=== PATIENT | female | born 1935 | race Asian ===

== ENCOUNTER 2016-08-29 12:40 | Emergency (ER) | payer MEDICARE, BC ==
[~2016-08-29] VITALS: Ht 147.3 cm; Wt 53.1 kg
[2016-08-29] MEDS ORDERED: TDAP [DIPH/PERTUSSIS/TET] 0.5 ML VIAL IM ONE ×2 (13:07→13:30)
[2016-08-29 13:30] VITALS: BP 141/91
== END 2016-08-29 13:31 | disposition home or self-care (01) ==
LOC: ER 12:41
DX: S01.01XA Laceration without foreign body of scalp, initial encounter (principal); S09.90XA Unspecified injury of head, initial encounter; W22.09XA Striking against other stationary object, initial encounter; Y93.89 Activity, other specified; Y92.89 Other specified places as the place of occurrence of the external cause; Y99.8 Other external cause status
CPT/HCPCS: 12001; 90471; 90715; 99283; A4606; A6402; A6403; Z7610

== ENCOUNTER 2017-08-17 14:24 | Emergency (ER) | payer MEDICARE, BC ==
[~2017-08-17] VITALS: Ht 149.9 cm; Wt 49.9 kg
--- NOTE | 2017-08-17 14:30 | NUR ---
A/OX3, PT WAS ASSISTED VIA WHEELCHAIR TO ED BED 16, PT IS C/O FEELING DIZZY AND PALPITATION SINCE THIS AM, NAUSEA, DIARRHEA AND NO APETITE X 2 DAYS. NO CHEST PAIN, NO SOB. "I DON'T FEEL GOOD." NAD ASSISTED TO BED. KEPT WARM AND COMFORTABLE. PENDING ER MD EVALUATION
[2017-08-17 14:48] LABS: BASOPHILS % (AUTO) 0.7 % (0.0-2.0); EOSINOPHILS % (AUTO) 1.2 % (0.0-6.0); HEMATOCRIT 41 % (33-45); HEMOGLOBIN 14.2 g/dL (11.5-14.8); LYMPHOCYTES # (AUTO) 2.7 /CMM (0.8-4.8); LYMPHOCYTES % (AUTO) 42.5 % (20.0-44.0); MEAN CORPUSCULAR HGB CONC 34 g/dl (31.0-36.0); MEAN CORPUSCULAR VOLUME 91 fL (82-100); MONOCYTES # (AUTO) 0.4 /CMM (0.1-1.30); MONOCYTES % (AUTO) 6.2 % (2.0-12.0); NEUTROPHILS # (AUTO) 3.3 /CMM (1.8-8.9); NEUTROPHILS % (AUTO) 49.4 % (43.0-81.0); PLATELET COUNT (AUTO) 250 /CMM (150-450); RDW COEFFICIENT OF VARIATION 12.3 (11.5-15.0); RED BLOOD CELL COUNT(AUTO) 4.54 MIL/uL (4.0-5.2); WHITE BLOOD COUNT (AUTO) 6.5 K/uL (4.3-11.0)
[2017-08-17 14:58] LABS: CALCIUM, SERUM 9.2 mg/dL (8.5-10.1); CARBON DIOXIDE 26 mmol/L (21-32); CHLORIDE 106 mmol/L (98-107); CREATININE 0.8 mg/dL (0.6-1.3); GLUCOSE 98 mg/dL (74-106); POTASSIUM 3.2 mmol/L (3.5-5.1); SODIUM SERUM 141 mmol/L (136-145); UREA NITROGEN, BLOOD 6 mg/dL (7-18)
[2017-08-17 15:04] LABS: ALANINE AMINOTRANSFERASE 36 U/L (12-78); ALKALINE PHOSPHATASE 62 U/L (46-116); ASPARTATE AMINOTRANSFERASE 30 U/L (15-37); BILIRUBIN,DIRECT 0.1 mg/dL (0.0-0.2); BILIRUBIN,TOTAL 0.6 mg/dL (0.2-1.0); LIPASE 178 U/L (73-393); TOTAL PROTEIN, SERUM 8.1 g/dL (6.4-8.2)
[2017-08-17 15:06] LABS: TROPONIN I < 0.017 ng/mL (0.00-0.056)
[2017-08-17 15:08] LABS: INR 0.95 (0.85-1.15)
--- NOTE | 2017-08-17 15:10 | NUR ---
URINE SENT TO LAB
[2017-08-17] MEDS ORDERED: POTASSIUM CHLORIDE 20 MEQ TAB.PRT.SR PO ONE ×2 (15:21→15:30)
[2017-08-17] MEDS ORDERED: IV NS 0.9% 1,000 ML IV ONE (15:30)
[2017-08-17 15:49] LABS: APPEARANCE,URINE Clear (CLEAR); BILIRUBIN,URINE Negative (NEGATIVE); BLOOD, URINE Trace-intact Ery/uL (NEGATIVE); COLOR,URINE Yellow (YELLOW); KETONES,URINE 40 (NEGATIVE); LEUKOCYTE ESTERASE ,URINE Trace (NEGATIVE); NITRITE, URINE Negative (NEGATIVE); PH,URINE 7.5 (5.0-8.0); PROTEIN,URINE Negative (NEGATIVE); UGLUCOSE Negative (NEGATIVE); UROBILINOGEN,URINE 0.2 EU/dL (0.2)
[2017-08-17 16:01] LABS: BACTERIA,URINE Few /HPF (None Seen); RBC,URINE 0-2 /HPF (0-2); WBC,URINE 0-2 /HPF (0-3)
[2017-08-17 16:02] LABS: SQUAMOUS EPITHELIAL CELL,UR Rare /HPF (None Seen)
[2017-08-17 16:29] VITALS: BP 145/85
--- NOTE | 2017-08-17 16:30 | NUR ---
Patient discharged to home in stable condition. Written and verbal after care instructions given. Patient verbalizes understanding of instruction. IV removed. Catheter intact and site benign. Pressure and 4x4 applied to site. No bleeding noted.
== END 2017-08-17 16:33 | disposition home or self-care (01) ==
LOC: ER 14:25
DX: R19.7 Diarrhea, unspecified (principal); E87.6 Hypokalemia
CPT/HCPCS: 36415; 80048-TC; 80076-TC; 81000-TC; 83690-TC; 84484-TC; 85025-TC; 85730-TC; A4606; J7030; Z7610

== ENCOUNTER 2017-10-12 17:12 | Emergency (ER) | payer MEDICARE, BC ==
[~2017-10-12] VITALS: Ht 152.4 cm; Wt 45.8 kg
--- NOTE | 2017-10-12 17:18 | NUR ---
BIB [facility] FOR [facility]ZZINES[facility]. PT DENIES C/P OR SOB. NEURO INTACT. A/OX4. NAD GOWNED PLACED ON CONT CARDIAC AND POX MONITOR. WILL CONT TO MONITOR
[2017-10-12] MEDS ORDERED: IV NS 0.9% 500 ML BAG IV ONE (17:30)
[2017-10-12] MEDS ORDERED: ONDANSETRON HCL/PF 4 MG/2 ML VIAL IVP ONE (17:30)
[2017-10-12] MEDS ORDERED: ONDANSETRON HCL/PF 4 MG/2 ML VIAL ONE (17:42)
--- NOTE | 2017-10-12 17:45 | NUR ---
IV NS 500 cc given as ordered to rt ac g18 end time 181 zofran 4mg given through IV to rt ac g18
--- NOTE | 2017-10-12 17:51 | NUR ---
Pt taken to CT scan.
[2017-10-12 18:54] VITALS: BP 149/82
--- NOTE | 2017-10-12 18:54 | NUR ---
IV removed. Catheter intact and site benign. Pressure and 4x4 applied to site. No bleeding noted.
--- NOTE | 2017-10-12 18:59 | NUR ---
IV removed. Catheter intact and site benign. Pressure and 4x4 applied to site. No bleeding noted.
--- NOTE | 2017-10-12 19:00 | NUR ---
PT. VERBALIZED UNDERSTANDING OF AFTERCARE INSTRUCTIONS.Patient discharged to home in stable condition. Written and verbal after care instructions given. Patient verbalizes understanding of instruction.
== END 2017-10-12 19:02 | disposition home or self-care (01) ==
LOC: ER 17:13
DX: R51 Headache (principal)
CPT/HCPCS: 70450-TC; A4606; J2405; J7040; Z7610

== ENCOUNTER 2018-07-16 23:05 | Emergency (ER) | payer MEDICARE, BC ==
[~2018-07-16] VITALS: Ht 152.4 cm; Wt 52.2 kg
--- NOTE | 2018-07-16 23:57 | NUR ---
PT BIBFAM FOR R HAND 4TH DIGIT INJURY; PT AAOX4, DENIES PAIN/DISCOMFORT, VSS, NAD NOTED, PENDING MD LE
[2018-07-17] MEDS ORDERED: SODIUM BICARBONATE 5 ML VIAL ONE (00:15)
[2018-07-17] MEDS ORDERED: LIDOCAINE 2% 20 ML MDV ONE (00:15)
[2018-07-17] MEDS ORDERED: SODIUM BICARBONATE 5 ML VIAL TP ONE (00:30)
[2018-07-17] MEDS ORDERED: LIDOCAINE 2% 20 ML MDV TP ONE (00:30)
[2018-07-17] MEDS ORDERED: TDAP [DIPH/PERTUSSIS/TET] 0.5 ML VIAL IM ONE ×2 (00:30→01:27)
[2018-07-17] MEDS ORDERED: CEPHALEXIN MONOHYDRATE 500 MG CAPSULE PO ONE ×2 (00:30→01:27)
[2018-07-17 01:44] VITALS: BP 132/74
--- NOTE | 2018-07-17 01:44 | NUR ---
Patient discharged to home in stable condition. Written and verbal after care instructions given. Patient verbalizes understanding of instruction.
== END 2018-07-17 02:02 | disposition home or self-care (01) ==
LOC: ER 23:05
DX: S62.654A Nondisplaced fracture of middle phalanx of right ring finger, initial encounter for closed fracture (principal); S61.314A Laceration without foreign body of right ring finger with damage to nail, initial encounter; Z23 Encounter for immunization; W23.0XXA Caught, crushed, jammed, or pinched between moving objects, initial encounter; Y93.89 Activity, other specified; Y92.89 Other specified places as the place of occurrence of the external cause; Y99.8 Other external cause status
CPT/HCPCS: 12001; 73130; 90471; 90715; 99283; J3490 ×2

== ENCOUNTER 2018-07-17 22:51 | Emergency (ER) | payer MEDICARE, BC ==
[~2018-07-17] VITALS: Ht 152.4 cm; Wt 47.6 kg
[2018-07-17 22:55] VITALS: BP 143/82
== END 2018-07-17 23:50 | disposition home or self-care (01) ==
LOC: ER 22:55
DX: S62.634D Displaced fracture of distal phalanx of right ring finger, subsequent encounter for fracture with routine healing (principal); Z88.6 Allergy status to analgesic agent; X58.XXXD Exposure to other specified factors, subsequent encounter